=== PATIENT | male | born 1995 | race Caucasian/White ===

== ENCOUNTER 2020-12-12 08:20 | Emergency (ER) | payer BC ==
[2020-12-12 08:25] VITALS: BP 153/84; PULSE 76
[2020-12-12] MEDS ORDERED: Bupivacaine 0.5% 10 ML SDV INJECT ONE (08:44)
[2020-12-12] MEDS ORDERED: ceFAZolin 1 GM Vial IM ONE (09:45)
--- NOTE | 2020-12-12 10:03 | EDM.PDOC ---
ED HPI GENERAL MEDICAL PROBLEM - General Chief Complaint: General Stated Complaint: laceration Time Seen by Provider: 12/12/20 08:44 Source of Information: Reports: Patient History Limitations: Reports: No Limitations - History of Present Illness INITIAL COMMENTS - FREE TEXT/NARRATIVE: This patient is a 25 year old male that presents to the ER. Patient reports that he was hitching, when the hitch came down on his left 2nd digit. Patient reports finger laceration to the left 2nd digit. Denies any other injuries. Onset: Today Onset Date: 12/12/20 Duration: Minutes: (TOY STUFFER) Location: Reports: Upper Extremity, Left (2nd digit) Front/Back Body Image: 1 - laceration nailbed Quality: Reports: Ache Severity: Moderate Improves with: Reports: None Worsens with: Reports: None Associated Symptoms: Reports: No Other Symptoms Left Finger-Index Pain Score (Numeric/FACES): 8 - Related Data Allergies Allergy/AdvReac Type Severity Reaction Status Date / Time No Known Allergies Allergy Verified 12/12/20 08:26 Home Meds: Home Meds . [No Known Home Meds] 12/12/20 [History] Past Medical History Respiratory History: Reports: Asthma - Past Surgical History HEENT Surgical History: Reports: Tonsillectomy GI Surgical History: Reports: Appendectomy Social & Family History - Tobacco Use Tobacco Use Status *Q: Current Every Day Tobacco User Years of Tobacco use: 5 Packs/Tins Daily: 0.5 - Caffeine Use Caffeine Use: Reports: Soda - Recreational Drug Use Recreational Drug Use: No ED ROS GENERAL - Review of Systems Review Of Systems: See Below Constitutional: Reports: No Symptoms Respiratory: Reports: No Symptoms Cardiovascular: Reports: No Symptoms Musculoskeletal: Reports: Other (left 2nd finger pain) Skin: Reports: Wound (left finger laceration) ED EXAM, GENERAL - Physical Exam Exam: See Below Exam Limited By: No Limitations General Appearance: Alert, WD/WN, No Apparent Distress Respiratory/Chest: No Respiratory Distress, Lungs Clear, Normal Breath Sounds, No Accessory Muscle Use Cardiovascular: Normal Peripheral Pulses, Regular Rate, Rhythm, No Edema, No Gallop, No JVD, No Murmur, No Rub Peripheral Pulses: 2+: Radial (L), Radial (R) Extremities: Normal Range of Motion, No Pedal Edema, Normal Capillary Refill, Other (pain, tenderness left distal finger. ROM intact. Neurovasculart intact. Motor/sensory intact. pulses +2, cap refill < 2 sec. ). No: Limited Range of Motion Neurological: Alert, Oriented Psychiatric: Anxious Skin Exam: Warm, Dry, Wound/Incision (left 2nd digit finger nailbed with nail injury hanging off. ) ED GENERAL MEDICAL PROCEDURES - Laceration/Wound Repair Left Distal Digit - 2nd (Index) Lac/wound length in cm: 2.5 Appearance: Subcutaneous, Moderately Contaminated (dirt), Other (with nailbed injury and hanging nail) Distal NVT: Neuro & Vascular Intact, No Tendon Injury Anesthetic Type: Digital Local Anesthesia - Lidocaine (Xylocaine): 1% Plain Local Anesthesia - Bupivicaine (Marcaine): 0.5% Plain Local Anesthetic Volume: 2cc (each webspace) Skin Prep: Chlorhexidine (Hibiciens), Providone-Iodine (Betadine), Isopropyl Alcohol (Alcohol), Saline Saline irrigation (cc's): 100 Exploration/Debridement/Repair: Wound Explored, In a Bloodless Field, Explored to Base, Minimal Debridement, No Foreign Material Found, Wound Margins Revised Closed with: Sutures Suture Size: 5-0 # of Sutures: 4 (sides of finger outside of the nailbed and hold nail in place for protection) Suture Type: Nylon Suture Size: 4-0 # of Sutures: 4 (through the nailbed) Repaired with: Vicryl Tetanus Status Addressed: Yes Complications: No Course - Vital Signs Last Recorded V/S: Last Vital Signs Temp 96.3 F L 12/12/20 08:23 Pulse 76 12/12/20 08:23 Resp 20 12/12/20 08:23 BP 153/84 H 12/12/20 08:23 Pulse Ox 97 12/12/20 08:23 - Orders/Labs/Meds Orders: Active Orders 24 hr Category Date Time Status Fingers Second Digit Lt F1 [CR] Stat Exams 12/12/20 08:44 Taken Meds: Medications Discontinued Medications Generic Name Dose Route Start Last Admin Trade Name Freq PRN Reason Stop Dose Admin Bupivacaine HCl 10 ml 12/12/20 08:44 12/12/20 09:21 Bupivacaine 0.5% 10 Ml Sdv INJECT 12/12/20 08:45 10 ml ONETIME ONE Administration Cefazolin Sodium 1 gm 12/12/20 09:45 12/12/20 09:53 Cefazolin 1 Gm Vial IM 12/12/20 09:46 1 gm ONETIME ONE Administration Lidocaine HCl 5 ml 12/12/20 08:44 12/12/20 09:21 Lidocaine 1% 5 Ml Sdv INJECT 12/12/20 08:45 5 ml ONETIME ONE Administration - Radiology Interpretation Free Text/Narrative:: Left 2nd finger: No fracture. Soft tissue injury laceration Departure - Departure Time of Disposition: 10:00 Disposition: Home, Self-Care 01 Condition: Fair Clinical Impression: Nailbed laceration, finger Qualifiers: Encounter type: initial encounter Qualified Code(s): S61.319A - Laceration without foreign body of unspecified finger with damage to nail, initial encounter - Discharge Information *PRESCRIPTION DRUG MONITORING PROGRAM REVIEWED*: Not Applicable *COPY OF PRESCRIPTION DRUG MONITORING REPORT IN PATIENT TONYA: Not Applicable Instructions: Laceration Care, Adult, [id number] Referrals: PCP,None [Primary Care Provider] - Forms: ED Department Discharge Additional Instructions: Followup with your primary care provider in 7-9 days for suture removal and recheck Return to the ER for worsening of condition or any emergent concerns such as redness, drainage, fever, vomiting, or other concerns Wash the area twice a day gently with soap and water, rinse, pat dry. Keep clean and covered Sepsis Event Note (ED) - Evaluation Sepsis Screening Result: No Definite Risk - Focused Exam Vital Signs: Vital Signs Temp Pulse Resp BP Pulse Ox 12/12/20 08:23 96.3 F L 76 20 153/84 H 97 - My Orders Last 24 Hours: My Active Orders 12/12/20 08:44 Fingers Second Digit Lt F1 [CR] Stat - Assessment/Plan Last 24 Hours: My Active Orders 12/12/20 08:44 Fingers Second Digit Lt F1 [CR] Stat Plan: PLEASE SEE RN NOTE FOR PFSH
== END 2020-12-12 10:07 | disposition home or self-care (01) ==
LOC: CC.ED 08:20
DX: S61.311A Laceration without foreign body of left index finger with damage to nail, initial encounter (principal); J45.909 Unspecified asthma, uncomplicated; Z72.0 Tobacco use; X58.XXXA Exposure to other specified factors, initial encounter
CPT/HCPCS: 11760; 73140-F1; 96372; 99283-25; J0690; J3490